=== PATIENT | female | born 1955 | race Caucasian/White ===

== ENCOUNTER → 2024-03-31 06:53 | Outpatient (REF) | payer OTHER, SELFPAY | LOC: RAD 06:53 | PROVIDERS: ATTENDING PHYSICIAN Internal Medicine | DX: I65.22 Occlusion and stenosis of left carotid artery (principal) | CPT/HCPCS: 93880 ==

== ENCOUNTER → 2024-04-13 15:00 | Outpatient (REF) | payer OTHER, SELFPAY | LOC: RAD 15:00 | PROVIDERS: ATTENDING PHYSICIAN Internal Medicine | DX: M79.89 Other specified soft tissue disorders (principal) | CPT/HCPCS: 93971 ==

== ENCOUNTER → 2024-05-16 11:11 | Outpatient (REF) | payer OTHER, SELFPAY | LOC: MRI 3T 11:11 | PROVIDERS: ATTENDING PHYSICIAN Family Medicine Sports Medicine; FAMILY PHYSICIAN Internal Medicine | DX: M47.22 Other spondylosis with radiculopathy, cervical region (principal) | CPT/HCPCS: 72141; 93971 ==

== ENCOUNTER 2025-07-04 11:29 | Emergency (ER) | payer OTHER, SELFPAY ==
[2025-07-04 11:31] VITALS: BP 138/77
--- NOTE | 2025-07-04 11:48 | ED.GENMED ---
History of Present Illness
<Kizzy Auguste MD, Resident - Last Filed: 07/04/25 15:41>
General
Chief Complaint: Abdominal Symptoms
Source: patient
Exam Limitations: none
Time Seen by Provider: 07/04/25 11:41
History of Present Illness
History of Present Illness:
70 year old female with a past medical history of GERD, HTN, Insulin requiring diabetes, and newly diagnosed M�ni�re's disease comes to the Emergency department due to 4 weeks of persist nausea and dizziness along with recent mid abdominal pain. She
says that she was diagnosed with M�ni�re's disease following a sinus infection. Her ears continue to ring and had been taking Meclizine and Compazine for her condition. She states that she had a fever last week and ended up going to the ER on
Friday where she had multiple tests done including CT scan, and EKGs but nothing was found. She then went to her PCP on who started her on Compazine and Meclizine. She tried going to work this morning here in the hospital but her symptoms
were too much for her to take so decided to come to the ED here. She does not report any diarrhea, and her last bowel movement was on (Which seems to be normal for her). He has not had a fever since early last week and has not had any
chills. Her ears are still ringing and she still feels dizzy. She states that she has not been around any sick individuals and that she has not had a cough. She states that she has been urinating much more frequently recently (4x last night) but has
not had any dysuria.
Past History
<Kizzy Auguste MD, Resident - Last Filed: 07/04/25 15:41>
Past History
ED Past Medical History: HTN, Hypercholesterolemia and IDDM
ED Past Surgical History: Gynecological
Social History
Tobacco: Non-smoker
Alcohol: None
Drug: None
Review of Systems
<Kizzy Auguste MD, Resident - Last Filed: 07/04/25 15:41>
Review of Systems
Allergies reviewed?: Yes
Constitutional: Reports fatigue and chills; Denies fever
EENT: Reports other (Bilateral ear ringing)
Respiratory: Reports no symptoms
Cardiac: Reports no symptoms
ABD/GI: Reports abdominal pain, nausea and constipated; Denies vomiting or diarrhea
: Reports frequency
Musculoskeletal: Reports no symptoms
Skin: Reports no symptoms
Neurological: Reports dizzy and headache
Endocrine: Reports no symptoms
Hematologic/Lymphatic: Reports no symptoms
Psychiatric: Reports no symptoms
Phy Exam
<Kizzy Auguste MD, Resident - Last Filed: 07/04/25 15:41>
General Physical Exam
General Presentation: mild distress
General Skin: warm and dry
General Habitus: normal
General Mental: alert
General Hydration: appears well hydrated
Cardiovascular Exam
Cardiovascular Exam: regular rate/rhythm, no edema and no murmur
Pulmonary Exam
Pulmonary Exam: lungs clear, no respiratory distress, no rales, no crackles and no wheezing
Gastrointestinal Exam
Gastrointestinal Exam: soft and distended (mildly distended)
Palpation: generalized: Mild tenderness
Auscultation of Abdomen: normal
Neurological Exam
Neurological Exam: alert and oriented x3
Course
<Kizzy Auguste MD, Resident - Last Filed: 07/04/25 15:41>
Orders/Labs/Results
Orders:
Orders
07/04/25 11:48
IV Insert/Care/Rem.- Treatment PRN
07/04/25 12:06
Complete Blood Count/With Diff Urgent
Comprehensive Metabolic Panel Urgent
Lipase Urgent
07/04/25 12:13
Urinalysis Reflex To Culture Urgent
Date Specimen was Collected: 07/04/25
Time Specimen was Collected: 12:11
Urine Microscopic Reflex Cult Urgent
Urine Culture Urgent
MARCELLA Source: U
Specimen Description:
Date Specimen was Collected: 07/04/25
Time Specimen was Collected: 12:11
07/04/25 12:24
0.9% Sodium Chloride 1000 ml [Nss] 1,000 ml IV BOLUS
Meclizine [Antivert] 25 mg PO NOW STA
Ondansetron Injectable [Zofran] 4 mg IV NOW STA
Pulse Ox/cont/shift [RESP] Stat
Quantity: 1
07/04/25 12:25
CT Abd/Pel (IV only)-DH only Urgent
Comment:
Reason For Exam: Mid Epigastric and mid lower abdominal pain
07/04/25 13:42
Pantoprazole [Protonix IV] 40 mg IV NOW STA
Abnormal Lab Results
07/04/25 07/04/25
12:06 12:13
RBC 4.14 L 10^6/uL
(4.20-5.40)
Carbon Dioxide 21 L mmol/L
(22-30)
BUN 19 H mg/dl
(7-17)
Glucose 125 H mg/dl
(70-99)
Leukocyte Esterase Rfl 2+ A
(Negative)
Urine Bacteria (Reflex) Few A
(Negative)
Urine Albumin (Reflex) 1+ A
(Neg - Trace)
07/04/25 12:06
07/04/25 12:06
Vital Signs
Initial and Last Documented VS:
Initial Vital Signs
Temp Pulse Resp BP Pulse Ox
98 F 70 16 138/77 100
07/04/25 11:31 07/04/25 11:31 07/04/25 11:31 07/04/25 11:31 07/04/25 11:31
Last Documented Vital Signs
Temp Pulse Resp BP Pulse Ox
98 F 84 29 145/75 96
07/04/25 11:31 07/04/25 15:15 07/04/25 15:15 07/04/25 15:06 07/04/25 15:15
<Rose Renae, DO - Last Filed: 07/04/25 13:47>
Orders/Labs/Results
Orders:
Orders
07/04/25 11:48
IV Insert/Care/Rem.- Treatment PRN
07/04/25 12:06
Complete Blood Count/With Diff Urgent
Comprehensive Metabolic Panel Urgent
Lipase Urgent
07/04/25 12:13
Urinalysis Reflex To Culture Urgent
Date Specimen was Collected: 07/04/25
Time Specimen was Collected: 12:11
Urine Microscopic Reflex Cult Urgent
Urine Culture Urgent
MARCELLA Source: U
Specimen Description:
Date Specimen was Collected: 07/04/25
Time Specimen was Collected: 12:11
07/04/25 12:24
0.9% Sodium Chloride 1000 ml [Nss] 1,000 ml IV BOLUS
Meclizine [Antivert] 25 mg PO NOW STA
Ondansetron Injectable [Zofran] 4 mg IV NOW STA
Pulse Ox/cont/shift [RESP] Stat
Quantity: 1
07/04/25 12:25
CT Abd/Pel (IV only)-DH only Urgent
Comment:
Reason For Exam: Mid Epigastric and mid lower abdominal pain
07/04/25 13:42
Pantoprazole [Protonix IV] 40 mg IV NOW STA
Abnormal Lab Results
07/04/25 07/04/25
12:06 12:13
RBC 4.14 L 10^6/uL
(4.20-5.40)
Carbon Dioxide 21 L mmol/L
(22-30)
BUN 19 H mg/dl
(7-17)
Glucose 125 H mg/dl
(70-99)
Leukocyte Esterase Rfl 2+ A
(Negative)
Urine Bacteria (Reflex) Few A
(Negative)
Urine Albumin (Reflex) 1+ A
(Neg - Trace)
07/04/25 12:06
07/04/25 12:06
Vital Signs
Initial and Last Documented VS:
Initial Vital Signs
Temp Pulse Resp BP Pulse Ox
98 F 70 16 138/77 100
07/04/25 11:31 07/04/25 11:31 07/04/25 11:31 07/04/25 11:31 07/04/25 11:31
Last Documented Vital Signs
Temp Pulse Resp BP Pulse Ox
98 F 84 29 145/75 96
07/04/25 11:31 07/04/25 15:15 07/04/25 15:15 07/04/25 15:06 07/04/25 15:15
<Jaylan Stanley, DO - Last Filed: 07/04/25 15:31>
Orders/Labs/Results
Orders:
Orders
07/04/25 11:48
IV Insert/Care/Rem.- Treatment PRN
07/04/25 12:06
Complete Blood Count/With Diff Urgent
Comprehensive Metabolic Panel Urgent
Lipase Urgent
07/04/25 12:13
Urinalysis Reflex To Culture Urgent
Date Specimen was Collected: 07/04/25
Time Specimen was Collected: 12:11
Urine Microscopic Reflex Cult Urgent
Urine Culture Urgent
MARCELLA Source: U
Specimen Description:
Date Specimen was Collected: 07/04/25
Time Specimen was Collected: 12:11
07/04/25 12:24
0.9% Sodium Chloride 1000 ml [Nss] 1,000 ml IV BOLUS
Meclizine [Antivert] 25 mg PO NOW STA
Ondansetron Injectable [Zofran] 4 mg IV NOW STA
Pulse Ox/cont/shift [RESP] Stat
Quantity: 1
07/04/25 12:25
CT Abd/Pel (IV only)-DH only Urgent
Comment:
Reason For Exam: Mid Epigastric and mid lower abdominal pain
07/04/25 13:42
Pantoprazole [Protonix IV] 40 mg IV NOW STA
Abnormal Lab Results
07/04/25 07/04/25
12:06 12:13
RBC 4.14 L 10^6/uL
(4.20-5.40)
Carbon Dioxide 21 L mmol/L
(22-30)
BUN 19 H mg/dl
(7-17)
Glucose 125 H mg/dl
(70-99)
Leukocyte Esterase Rfl 2+ A
(Negative)
Urine Bacteria (Reflex) Few A
(Negative)
Urine Albumin (Reflex) 1+ A
(Neg - Trace)
07/04/25 12:06
07/04/25 12:06
Vital Signs
Initial and Last Documented VS:
Initial Vital Signs
Temp Pulse Resp BP Pulse Ox
98 F 70 16 138/77 100
07/04/25 11:31 07/04/25 11:31 07/04/25 11:31 07/04/25 11:31 07/04/25 11:31
Last Documented Vital Signs
Temp Pulse Resp BP Pulse Ox
98 F 84 29 145/75 96
07/04/25 11:31 07/04/25 15:15 07/04/25 15:15 07/04/25 15:06 07/04/25 15:15
<Kizzy Auguste MD, Resident - Last Filed: 07/04/25 15:41>
MDM/Problems Addressed
Differential Diagnosis Includes:
Gastroenteritis, Diverticulitis, Chronic Constipation exacerbation, Meniere's disease
MDM/Problems Addressed:
Patient has been having the nausea and dizziness for a few weeks now. Symptoms have not really been controlled with Meclizine and Compazine. Will give her Zofran and Meclizine for symptomatic relief. Will give IVF due to recent vomiting.
Will check Urinalysis due to recent history of frequent urination
Will check CBC, CMP, Lipase and get imaging of the abdomen CT Abd/Pel w/ IV Contrast.
Will give 40mg IV Pantoprazole due to Gastric reflux and history of GERD
CT Abd/Pelv unremarkable, showed large stool burden consistent with chronic constipation. No acute abnormality seen that would prompt treatment at this time.
Discussed with patient that most of her symptoms are most likely consistent with her chronic constipation. She revealed that she has not been on her regular bowel regimen which has caused her constipation to worsen.
Counseled her that she should start taking her regular bowel regimen when she returns home.
<Kizzy Auguste MD, Resident - Last Filed: 07/04/25 15:41>
*Pulse Oximetry
SaO2: 100
Oxygen Mode of Delivery: Room air
<Jaylan Stanley, DO - Last Filed: 07/04/25 15:31>
*Pulse Oximetry
Patient hypoxic: no
*Critical Care Note
Total Time (30-74mins, 75-104mins- exclusive of procedures): Not Applicable
ED Attending Note
<Kizzy Auguste MD, Resident - Last Filed: 07/04/25 15:41>
-
Portions of this chart may have been created with voice recognition software.� Occasional wrong word or��sound alike� substitutions may have occurred due to the inherent limitations of voice recognition software.
<Rose Renae, DO - Last Filed: 07/04/25 13:47>
ED Attending Note
Patient seen and examined by attending physician: Yes
I performed the substantive portion of visit, reviewed & personally made and approve the management plan that is documented in note by myself or EUGENIA.: Yes
I performed a history and physical exam of patient and discussed management with resident, I reviewed resident's note and agree with documented findings and plan of care.: Yes
ED Attending Note:
70-year-old female with recent diagnosis of M�ni�re disease and history of indigestion presenting to the emergency department for upper abdominal discomfort with nausea and vomiting. Notes in the past 4 weeks has been struggling with dizziness and
tinnitus. She was diagnosed with M�ni�re's, started on Compazine and meclizine with some improvement. However in the past few days has been having abdominal discomfort, and indigestion. Denies any correlation with food. Denies any blood in the
vomit. Notes chronic constipation. Does also report urinary frequency, history of UTI. Initially reported fevers which have since resolved. Denies chest pain or difficulty breathing. Vital signs are normal.
On exam, patient is resting comfortably, no acute distress. On abdominal exam, generalized upper abdominal tenderness without rebound or guarding. Ultimately suspect likely GI etiology of symptoms, gastritis. Notes that she does follow with GI,
has an upcoming EGD scheduled. Lower suspicion for acute intra-abdominal process, however given duration of symptoms, plan for screening laboratory analysis and CT imaging. Will administer IV fluids and pantoprazole.
13:45 - Urine does show an element of infection and patient reports urinary symptoms, so likely plan for treatment for UTI. Pending CT imaging
<Jaylan Stanley DO - Last Filed: 07/04/25 15:31>
ED Attending Note
ED Attending Note:
I personally viewed CT imaging and agree with radiologist interpretation, constipation again noted.
Discharge Plan
Departure
Patient Disposition: Home (Routine Discharge)
Date of Disposition: 07/04/25
Time of Disposition: 15:41
Patient with high blood pressure during this ER visit?: Yes
Condition: Good
Discharge Problem:
Urinary tract infection, Chronic constipation
Instructions: Constipation, Adult (DC), Nausea and Vomiting, Adult (DC), Urinary tract infection in adults - ED discharge instructions, BLOOD PRESSURE
Prescriptions:
New
cephalexin 500 mg tablet
500 mg PO BID Qty: 14 0RF
Referrals:
Edison Pandya MD [Family Provider, Internal Medicine]
Activity Restrictions/Additional Instructions:
As discussed, please take Cephalexin 500mg Twice a day for one week for your Urinary Tract Infection.
We discussed that you should continue to be on your regular bowel regimen as there was large stool burden noticed on your Abdominal CT scan.
Please return to the ED if you develop a fever, chills or worsening abdominal pain.
Interventions
Interventions:
*Risk Screen - Suicide Last Done: 07/04/25 11:35
*General Assessment Last Done: 07/04/25 12:00
*Neglect/Abuse Screening Last Done: 07/04/25 11:35
*ED- Fall Risk Assessment Last Done: 07/04/25 12:00
*ED COVID-19 Vaccine History Last Done: 07/04/25 12:00
QN-[id number]-Cqwpjlopty Assessment Last Done: 07/04/25 12:00
Discharge Date and Time
Print Language: FIJIAN
[2025-07-04 12:02] VITALS: BP 137/74
[2025-07-04 12:22] LABS: Urine Character Clear (Clear)
[2025-07-04 12:24] LABS: Hematocrit 37.6 % (37.0-47.0); Hemoglobin 12.8 g/dL (12.0-16.0); Mean Corp Hgb Conc. 34.0 g/dL (33.0-37.0); Mean Corpuscular Volume 90.8 fL (81.0-99.0); Platelet Count 240 10^3/uL (130-400); Red Cell Dist. Width 12.4 % (11.5-14.5)
[2025-07-04 12:31] LABS: Urine Red Blood Cell 0-2 /HPF (0-2); Urine Squamous Cell 0-2 /LPF (Few)
[2025-07-04] MEDS: NSS 1000 IV (12:33)
[2025-07-04] MEDS: ANTIVERT 25 MG PO (12:33)
[2025-07-04] MEDS: ZOFRAN 4 MG IV (12:33)
[2025-07-04 12:46] LABS: ALT (SGPT) 20 U/L (0-35); AST (SGOT) 20 U/L (14-36); Albumin 4.8 g/dl (3.5-5.0); Alkaline Phosphatase 41 U/L (38-126); Blood Urea Nitrogen 19 mg/dl (7-17); Calcium 9.8 mg/dl (8.4-10.2); Carbon Dioxide 21 mmol/L (22-30); Chloride 103 mmol/L (98-107); Glucose 125 mg/dl (70-99); Lipase 58 U/L (23-300); Potassium 5.0 mmol/L (3.5-5.1); Sodium 137 mmol/L (135-145); Total Protein 7.7 g/dl (6.3-8.2); eGFR > 60.00
[2025-07-04 12:52] LABS: Nucleated Red Blood Cells % 0 %
[2025-07-04 13:44] VITALS: BP 145/80
[2025-07-04] MEDS: PROTONIX IV 40 MG IV (14:11)
[2025-07-04 15:06] VITALS: BP 145/75
--- NOTE | 2025-07-04 15:55 | EDRN ---
Reviewed discharge instructions with patient. Verbalized understanding.
[2025-07-04 16:00] VITALS: BP 145/75
== END 2025-07-04 16:07 | disposition home or self-care (01) ==
LOC: EMR 11:29
PROVIDERS: EMERGENCY PHYSICIAN Student in an Organized Health Care Education/Training Program; FAMILY PHYSICIAN Student in an Organized Health Care Education/Training Program
DX: N39.0 Urinary tract infection, site not specified (principal); K59.00 Constipation, unspecified; E11.9 Type 2 diabetes mellitus without complications; E78.00 Pure hypercholesterolemia, unspecified; I10 Essential (primary) hypertension
CPT/HCPCS: 99284; 96374; 96375; 96361; 74177; 80053; 81003; 81015; 83690; 85025; 87086; Q9967